=== PATIENT | male | born 1935 | race Caucasian/White ===

== ENCOUNTER → 2018-10-24 16:11 | Outpatient (CLI) | payer MEDICARE, SELFPAY ==
[2018-10-24 17:00] LABS: Add Manual Diff / Slide Review NO; Basophils Absolute Auto 0 /uL (0-100); Basophils Percent Auto 0.4 % (0-2); Eosinophils Absolute Auto 0 /uL (0-450); Eosinophils Percent Auto 0.7 % (2-4); Hematocrit 46.7 % (41-53); Hemoglobin 15.8 g/dL (13.5-17.5); Lymphocytes Absolute Auto 1800 /uL (1100-4500); Lymphocytes Percent Auto 27.3 % (25-40); Mean Corpuscular HGB Conc 33.8 % (30-36); Mean Corpuscular Hemoglobin 30.2 PG (26-34); Mean Corpuscular Volume 89.5 fL (80-100); Monocytes Absolute Auto 500 /uL (0-900); Monocytes Percent Auto 7.9 % (3-14); Neutrophils Absolute Auto 4100 /uL (1500-7000); Neutrophils Percent Auto 63.7 % (50-75); Platelet Count 162 X10^3/uL (150-400); Red Blood Cell Count 5.22 X10^6/uL (4.5-5.9); Red Cell Distribution Width 13.2 % (11.6-14.8); White Blood Cell Count 6.4 X10^3/uL (4.5-11.0)
[2018-10-24 17:20] LABS: BUN Creatinine Ratio 23.6 (6-22); Blood Urea Nitrogen 26 mg/dL (9-20); Calcium 9.7 mg/dL (8.4-10.2); Carbon Dioxide 29 mmol/L (22-32); Chloride 103 mmol/L (98-107); Cholesterol 189 mg/dL (140-199); Estimated Glomerular Filt Rate > 60.0 mL/min (>60); Glucose 89 mg/dL (80-110); HDL Cholesterol 45 mg/dL (40-60); HEMOLYSIS < 15 (0-50); LDL Cholesterol Calculated 126 mg/dL (<100); Potassium 4.2 mmol/L (3.4-5.1); Sodium 141 mmol/L (137-145); Triglycerides 91 mg/dL (35-150)
[2018-10-24 17:50] LABS: Thyroid Stimulating Hormone 2.72 uIU/mL (0.47-4.68)
== END ==
PROVIDERS: PCP Family Medicine; Visit Provider Internal Medicine Cardiovascular Disease
DX: R00.0 Tachycardia, unspecified (principal); I10 Essential (primary) hypertension
CPT/HCPCS: 36415; 80048; 80061; 84443; 85025

== ENCOUNTER → 2019-01-16 10:00 | Outpatient (CLI) | payer MEDICARE, SELFPAY ==
--- NOTE | 2019-01-16 14:58 | PM.TREADMILL ---
Cardiac Stress Test Report Referral & Results Date Patient Seen: 01/16/19 Requesting provider: Valerie Charles Indication: Preop Rest ECG: Unremarkable except for frequent PACs Procedure Note: After both written and verbal informed consent the patient had an IV started by the diagnostic imaging RN and then was hooked up to the treadmill monitoring system. The patient was placed on the treadmill at 1 mile an hour with no elevation and was then injected with the Nelsy scan material. The Cardiolite was then immediately administered. The patient spent an additional 2-3 minutes on the treadmill before being returned to the [facility] in the supine position. The patient had a normal response to all infused materials. Impression: Please see perfusion imaging report for details regarding possible ischemia Please note: Actual ECG tracings can be found in the PACS system.
--- NOTE | 2019-01-16 18:36 | DI.NM.S_ITS ---
DATE OF SERVICE: 01/16/2019 PROCEDURE: Pharmacological perfusion study. INDICATIONS: Nonsustained ventricular tachycardia, shortness of breath, hypertension, hyperlipidemia. RADIOPHARMACEUTICAL: 25.0038 mCi technetium-99m Myoview IV was injected at stress and 14.0 mCi technetium-99m Myoview IV was injected at rest. CARDIAC STRESS: Patient underwent IV Lexiscan perfusion study under the supervision of an attending staff. The patient what remained hemodynamically stable. No significant symptoms are reported. Baseline rhythm was sinus with some nonspecific ST-T changes. During stress, there was no convincing ischemic changes. Patient has intermittent PACs. No ventricular tachycardia seen. RAW DATA: There was increased subdiaphragmatic activity. GATED STUDY: Stress LV ejection fraction 82%, and resting stress LV ejection fraction 73%. No obvious wall motion abnormalities. No transient ischemic dilatation. TID ratio is 1.11, which is within normal limits. Resting LV end- diastolic volume is 93 mL. Lung/heart ratio is 0.25, which is within normal limits. MYOCARDIAL PERFUSION SCAN: Stress supine, resting supine, revealed mild-to- moderate sized, mildly decreased perfusion of inferior wall and inferior apex which got significantly improved during prone images suggestive of diaphragmatic tissue attenuation artifact. No convincing ischemia or infarction pattern seen. CONCLUSION: I will call this study likely a normal myocardial perfusion study with evidence of diaphragmatic tissue attenuation artifact which got resolved during prone images suggestive of diaphragmatic tissue attenuation artifact. Normal LV function. Overall, this is a low-risk myocardial perfusion scan. MICHELLE BENITEZ - [employer]/truong/ab doc#: [id number]/job#: [id number] dd: 01/16/2019 17:01:00 dt: 01/16/2019 18:26:00 DICTATING MD/COPIES TO: Loree Esparza MD COPIES MNE: ANNAMARIA
== END ==
PROVIDERS: PCP Family Medicine; Visit Provider Internal Medicine Cardiovascular Disease
DX: I47.2 Ventricular tachycardia (principal); R06.02 Shortness of breath; I10 Essential (primary) hypertension; E78.5 Hyperlipidemia, unspecified
CPT/HCPCS: 78452; 93016; 93017; 93018; A9502; J2785

== ENCOUNTER → 2021-08-13 14:28 | Outpatient (CLI) | payer MEDICARE, SELFPAY ==
--- NOTE | 2021-08-13 14:29 | DI.ECHO.S_ITS ---
[facility] +---------+ : : [address] : : : [place], [place] : : : : [id number] : : : : Phone: [phone] Echocardiogram Report + + :Name: MICHELLE BENITEZ Study Date: 08/13/2021 Height: 72 in : :[facility] ReadingLocation: Weight: 206 lb : : Gender: Male BSA: 2.2 m2 : :: 1935 Age: 85 yrs BP: 157/100 mmHg: :Reason For Study: Specified disorders of arteries and : :arteriols : : Performed By: Janusz Figueroa : :Referring: AZUL CHARLES : + + Interpretation Summary 1) Mildly increased left ventricular thickness (concentric) with normal size and normal systolic function (EF 55-60%). 2) Upper normal right ventricular size with normal function. 3) There is mild aortic regurgitation. 4) The ascending aorta is mildly enlarged at 4.4cm. 5) Hypertension present during the study (BP 157/100mmHg). 6) No prior Echo available for comparison. Procedure: A two-dimensional transthoracic echocardiogram with color flow and Doppler was performed. The study quality was technically adequate. Comparison is made with the echocardiogram of 11/14/2018. The patient was in normal sinus rhythm during the exam. The patient had occasional PVCs during the exam. Left Ventricle: The left ventricle is normal in size. There is borderline proximal septal thickening noted. There is mild concentric left ventricular hypertrophy. The ejection fraction is estimated to be 55-60%. There is a borderline dyssynchronous contraction pattern, consistent with a conduction abnormality. Diastolic function could not be accurately assessed due to contradictory data. Right Ventricle: The right ventricle is at the upper limits of normal in size. The right ventricular systolic function is normal. Atria: The left atrial size is normal. The right atrium is moderately dilated. There is no Doppler evidence for an interatrial shunt. Mitral Valve: There is mild mitral annular calcification. There is trace mitral regurgitation. Aortic Valve: The aortic valve is trileaflet. The aortic valve opens well. There is no aortic valve stenosis. There is mild aortic regurgitation. Tricuspid Valve: The tricuspid valve is normal. There is a trace or physiologic amount of tricuspid regurgitation. The right ventricular systolic pressure is estimated to be at least 22 mmHg based on an estimated right atrial pressure of 3 mm Hg. Pulmonic Valve: The pulmonic valve leaflets are thin and pliable; valve motion is normal. There is a trace or physiologic amount of pulmonic regurgitation. Great Vessels: The aortic root is borderline dilated. The ascending aorta is mildly enlarged. The aortic arch is normal in size. The IVC is of normal diameter and collapses greater than 50% with a sniff. This suggests a low right atrial pressure of 3 mm Hg. Pericardium/ Pleura There is no pericardial effusion. There is an anterior echo-free space consistent with a fat pad. There is no pleural effusion. MMode/2D Measurements & Calculations LVIDd: 4.1 cm LVOT diam: 2.2 cm LVIDs: 2.4 cm Ao root diam: 4.0 cm FS: 42.6 % asc Aorta Diam: 4.4 cm IVSd: 1.5 cm Ao Arch Diam (Prox Trans): 2.9 cm LVPWd: 1.2 cm LV wilcox. diameter/BSA (cm/m^2): 1.9 LV sys. diameter/BSA (cm/m^2): 1.1 LA A2 area: 19.0 cm2 RA long axis: 6.2 cm LA A4 area: 15.2 cm2 RA area: 23.6 cm2 LA length (vol): 6.1 cm RA vol: 76.0 ml LA vol: 40.1 ml RA : 35.3 ml/m2 LA vol index: 18.6 ml/m2 TAPSE: 2.4 cm Doppler Measurements & Calculations Ao V2 max: 126.3 cm/sec LVOT Max Perez: 114.3 cm/sec Ao V2 mean: 93.0 cm/sec LV V1 max P.2 mmHg Ao max P.4 mmHg LV V1 VTI: 23.8 cm Ao mean P.7 mmHg PATO(I,D): 3.2 cm2 Ao V2 VTI: 28.9 cm PATO(V,D): 3.5 cm2 sev ratio: 0.82 PATO indexed to BSA (cm^2/m^2): 1.5 MV E max perez: 98.6 cm/sec TR max perez: 219.6 cm/sec MV A max perez: 101.4 cm/sec TR max P.3 mmHg MV E/A: 0.97 PA V2 max: 69.9 cm/sec Med Peak E' Perez: 5.9 cm/sec PA V2 mean: 54.2 cm/sec E/E' med: 16.7 PA mean P.2 mmHg Lat Peak E' Perez: 6.3 cm/sec PA pr(Accel): 28.9 mmHg E/E' lat: 15.5 E/e' average: 16.1 MV dec time: 0.19 sec SV(LVOT): 92.5 ml Reading Physician:09:43 AM
== END ==
PROVIDERS: PCP Family Medicine; Referring Provider Internal Medicine Cardiovascular Disease; Visit Provider Internal Medicine Cardiovascular Disease
DX: I35.1 Nonrheumatic aortic (valve) insufficiency (principal); I77.89 Other specified disorders of arteries and arterioles
CPT/HCPCS: 93306

== ENCOUNTER 2022-04-23 19:16 | Inpatient (IN) | payer MEDICARE, SELFPAY ==
[2022-04-23] VITALS (13 sets, daily range): BP systolic 141–219; BP diastolic 66–102; PULSE 67–82; RESP 24; TEMP 36.8; O2SAT 85–98; BMI 27.6
[2022-04-23 19:54] LABS: Add Manual Diff / Slide Review NO; Basophils Absolute Auto 0 /uL (0-100); Basophils Percent Auto 0.2 % (0-2); Eosinophils Absolute Auto 0 /uL (0-450); Eosinophils Percent Auto 0.2 % (2-4); Hematocrit 43.3 % (41-53); Hemoglobin 15.1 g/dL (13.5-17.5); Lymphocytes Absolute Auto 1100 /uL (1100-4500); Lymphocytes Percent Auto 12.6 % (25-40); Mean Corpuscular HGB Conc 34.8 % (30-36); Mean Corpuscular Volume 89.1 fL (80-100); Monocytes Absolute Auto 500 /uL (0-900); Monocytes Percent Auto 5.4 % (3-14); Neutrophils Absolute Auto 7300 /uL (1500-7000); Neutrophils Percent Auto 81.6 % (50-75); Platelet Count 157 X10^3/uL (150-400); Red Blood Cell Count 4.86 X10^6/uL (4.5-5.9); Red Cell Distribution Width 13.7 % (11.6-14.8)
[2022-04-23 20:01] LABS: Alanine Aminotransferase 26 IU/L (<50); Albumin 4.6 g/dL (3.5-5.0); Albumin Globulin Ratio 1.6 (1.0-2.8); Alkaline Phosphatase 81 U/L (38-126); Aspartate Aminotransferase 27 IU/L (17-59); BUN Creatinine Ratio 30.3 (6-22); Bilirubin Total 1.2 mg/dL (0.2-1.3); Blood Urea Nitrogen 27 mg/dL (9-20); Calcium 9.5 mg/dL (8.4-10.2); Carbon Dioxide 26 mmol/L (22-32); Chloride 103 mmol/L (98-107); Estimated Glomerular Filt Rate > 60 mL/min (>60); Globulin 2.9 g/dL (1.7-4.1); Glucose 145 mg/dL (80-110); HEMOLYSIS 21 (0-50); Lipase 56 U/L (23-300); Potassium 4.2 mmol/L (3.4-5.1); Sodium 138 mmol/L (137-145); Total Protein 7.5 g/dL (6.3-8.2)
--- NOTE | 2022-04-23 21:09 | DI.CT.S_ITS ---
PROCEDURE: CT ABDOMEN PELVIS W CON INDICATIONS: Fever and abdominal pain TECHNIQUE: After the administration of oral and IV contrast, axial sections were acquired from the lung bases to the pubic symphysis. Coronal and sagittal reformats were performed. For radiation dose reduction, the following was used: automated exposure control, adjustment of mA and/or kV according to patient size. COMPARISON: None. FINDINGS: Image quality: Excellent. Lung bases: Mild fibrotic change can be seen posteriorly and medially on the right. There is a moderate hiatal hernia. With associated distal esophageal wall thickening. Heart: No significant findings. Moderate coronary artery calcification is seen. ABDOMEN: Liver: Unremarkable. Gallbladder: Layering gallstones are seen within the gallbladder. Biliary ducts: Unremarkable. Pancreas: Unremarkable. Spleen: Unremarkable. Adrenal Glands: Unremarkable. Kidneys and Ureters: Simple appearing bilateral renal cysts are seen. The kidneys demonstrate normal size and enhance symmetrically. There is no hydronephrosis. Stomach and Bowel: Abnormally dilated loops of small bowel can be seen proximally, which measure up to 3.3 cm. The distal small bowel loops are decompressed. A transition point can be seen within the right lower quadrant, where there is thickening and narrowing of the small bowel, as on series 3, image 25 and on series 2, image 46. Colonic diverticulosis is seen, without findings of active diverticulitis. The colon is otherwise unremarkable. No significant gastric abnormality is identified. Peritoneum: No abnormal intraperitoneal fluid. No free air. Ventral Wall: No hernia. Abdominal Nodes: No retroperitoneal or mesenteric adenopathy by size criteria. Vessels: Aorta and inferior vena cava are normal in size. Atherosclerotic calcification is noted. PELVIS: Pelvic Organs: The prostate is enlarged, measuring 6.4 cm transversely. Bladder: Unremarkable. Pelvic Nodes: No enlarged lymph nodes. Miscellaneous: There is a fat containing left inguinal hernia. Bones: Degenerative changes are seen throughout, which are overall worst at the L5-S1 level. S-shaped scoliotic curvature is seen. IMPRESSION: Small-bowel obstruction, with a transition point seen within the right lower quadrant. There is a moderate hiatal hernia seen, with distal esophageal wall thickening. Please correlate with chronic reflux disease. If clinically appropriate, please consider an upper endoscopy for further evaluation. Colonic diverticulosis is seen, without findings of active diverticulitis. Incidental note is made of: Moderate coronary artery calcifications Layering gallstones Simple bilateral renal cysts. Focal L5-S1 degenerative change Enlarged prostate Fat containing left inguinal hernia Dictated by: Basil Katz M.D. on 04/23/2022 at 21:03 Approved by: Basil Katz M.D. on 04/23/2022 at 21:10
--- NOTE | 2022-04-23 21:09 | ED_ITS ---
HPI - Abdominal Pain General Chief Complaint: Abdominal Pain Stated Complaint: abdominal pain, nv Time Seen by Provider: 04/23/22 21:02 Source: patient Mode of arrival: EMS History of Present Illness HPI narrative: This 86-year-old gentleman comes to the ER today with right upper quadrant abdominal pain. He says he has had some vague discomfort in the right upper quadrant for some weeks now but since 11:00 a.m. this morning it has been quite severe causing multiple episodes of vomiting and shaking and chills. The pain radiates across the upper abdomen. He has no constipation or diarrhea. No flank pain. No chest pain or shortness of breath. No fever. No symptoms similar to this previously. No prior abdominal surgeries other than hernia surgery many years ago. He does have hypertension. Related Data Allergies Allergy/AdvReac Type Severity Reaction Status Date / Time No Known Drug Allergies Allergy Verified 04/23/22 19:28 Review of Systems Review of Systems Narrative: Complete review of systems is negative other than as noted above. Exam Narrative Exam Narrative: GENERAL: Moderately ill-appearing elderly gentleman holding his right upper quadrant with 1 hand. HEAD: Atraumatic. Normocephalic. EYES: Sclera are clear without icterus. Extraocular movements are full. ENT: No rhinorrhea. Oropharynx is moist. Mouth exam is benign. NECK: Supple. Full range of motion. CARDIOVASCULAR: Normal rate and rhythm without murmur gallop or rub. RESPIRATORY: Clear to auscultation. Breath sounds equal bilaterally. No wheezes, rales, or rhonchi. GASTROINTESTINAL: Abdomen is distended and acutely tender in the right upper quadrant and mid epigastrium. The abdomen is soft without guarding or mass or rebound tenderness. EXTREMITIES: No edema, full range of motion. No obvious trauma. BACK: Normal inspection, no CVA tenderness. NEURO: Nonfocal examination, normal speech, normal gait. SKIN: No rash or erythema of visible areas PSYCH: Normally oriented. Normal range of affect. Appropriate behavior Initial Vital Signs Initial Vital Signs: Vital Signs Temperature 98.2 F 04/23/22 19:22 Pulse Rate 73 04/23/22 19:22 Respiratory Rate 24 04/23/22 19:22 Blood Pressure 219/99 H 04/23/22 19:22 Pulse Oximetry 98 04/23/22 19:22 Oxygen Delivery Method 04/23/22 19:22 Course Orders Ordered: ED Orders 04/23/22 19:25 Complete Blood Count AUTO DIFF Stat Comprehensive Metabolic Panel Stat Lactate (Lactic Acid) Stat Lipase Stat Troponin I Stat 04/23/22 19:35 EKG-12 Lead Stat 04/23/22 21:09 CT abdomen pelvis w con Stat Ondansetron HCl (Ondansetron 4 Mg/2 Ml Inj) 4 mg IV Q2HR PRN PRN Reason: Nausea And Vomiting Last Admin: 04/23/22 21:20 Dose: 4 mg Documented By: MARY ANNE Discontinued Medications Acetaminophen (Acetaminophen 325 Mg Tablet) 975 mg PO NOW ONE Stop: 04/23/22 21:08 Last Admin: 04/23/22 21:56 Dose: Not Given Documented By: MARY ANNE Acetaminophen (Acetaminophen 325 Mg Tablet) 975 mg PO NOW ONE Stop: 04/23/22 21:57 Last Admin: 04/23/22 22:00 Dose: 975 mg Documented By: MARY ANNE Fentanyl (Fentanyl 100 Mcg/2 Ml Inj) 90 mcg 1 mcg/kg (90 mcg) IV NOW ONE Stop: 04/23/22 21:08 Last Admin: 04/23/22 21:17 Dose: 90 mcg Documented By: MARY ANNE Sodium Chloride (Normal Saline 0.9%) 1,000 mls @ 1,000 mls/hr IV BOLUS ONE Stop: 04/23/22 22:06 Last Infusion: 04/23/22 22:58 Dose: 0 mls/hr Documented By: MARY ANNE Admin: 04/23/22 21:20 Dose: 1,000 mls/hr Documented By: MARY ANNE Ketorolac Tromethamine (Ketorolac 30 Mg/Ml Vial) 15 mg IV NOW ONE Stop: 04/23/22 21:08 Last Admin: 04/23/22 21:19 Dose: 15 mg Documented By: MARY ANNE Reevaluation(s) Reevaluation #1: Current time is 2355. He feels somewhat better Consultations Consultation #1: I discussed the case at 11:56 p.m. with Kristin Lee. She agrees to admit the patient. Vital Signs Vital signs: Vital Signs - 8 hr 04/23/22 19:22 Temperature 98.2 F Pulse Rate 73 Respiratory Rate 24 Blood Pressure 219/99 H Pulse Oximetry 98 Oxygen Delivery Method Room Air MDM - Abdominal Pain Lab Data Result diagrams: 04/23/22 19:25 04/23/22 19:25 Labs: Lab Results 04/23/22 04/23/22 04/23/22 Range/Units 19:25 19:25 19:25 WBC 9.0 (4.5-11.0) X10^3/uL RBC 4.86 (4.5-5.9) X10^6/uL Hgb 15.1 (13.5-17.5) g/dL Hct 43.3 (41-53) % MCV 89.1 (80-100) fL MCH 31.0 (26-34) PG MCHC 34.8 (30-36) % RDW 13.7 (11.6-14.8) % Plt Count 157 (150-400) X10^3/uL Neut % (Auto) 81.6 H (50-75) % Lymph % (Auto) 12.6 L (25-40) % [place] % (Auto) 5.4 (3-14) % Eos % (Auto) 0.2 L (2-4) % Baso % (Auto) 0.2 (0-2) % Neut # (Auto) 7300 H (2106-7035) /uL Lymph # (Auto) 1100 (1479-0824) /uL [place] # (Auto) 500 (0-900) /uL Eos # (Auto) 0 (0-450) /uL Baso # (Auto) 0 (0-100) /uL Sodium 138 (137-145) mmol/L Potassium 4.2 (3.4-5.1) mmol/L Chloride 103 (98-107) mmol/L Carbon Dioxide 26 (22-32) mmol/L BUN 27 H (9-20) mg/dL Creatinine 0.89 (0.66-1.25) mg/dL Estimated GFR > 60 (>60) mL/min BUN/Creatinine Ratio 30.3 H (6-22) Glucose 145 H (80-110) mg/dL Lactate 1.8 (0.7-2.1) mmol/L Calcium 9.5 (8.4-10.2) mg/dL Total Bilirubin 1.2 (0.2-1.3) mg/dL AST 27 (17-59) IU/L ALT 26 (<50) IU/L Alkaline Phosphatase 81 (38-126) U/L Troponin I (0.01-0.034) ng/mL Total Protein 7.5 (6.3-8.2) g/dL Albumin 4.6 (3.5-5.0) g/dL Globulin 2.9 (1.7-4.1) g/dL Albumin/Globulin Ratio 1.6 (1.0-2.8) Lipase 56 (23-300) U/L 04/23/22 Range/Units 19:25 WBC (4.5-11.0) X10^3/uL RBC (4.5-5.9) X10^6/uL Hgb (13.5-17.5) g/dL Hct (41-53) % MCV (80-100) fL MCH (26-34) PG MCHC (30-36) % RDW (11.6-14.8) % Plt Count (150-400) X10^3/uL Neut % (Auto) (50-75) % Lymph % (Auto) (25-40) % [place] % (Auto) (3-14) % Eos % (Auto) (2-4) % Baso % (Auto) (0-2) % Neut # (Auto) (5971-7238) /uL Lymph # (Auto) (5691-9581) /uL [place] # (Auto) (0-900) /uL Eos # (Auto) (0-450) /uL Baso # (Auto) (0-100) /uL Sodium (137-145) mmol/L Potassium (3.4-5.1) mmol/L Chloride (98-107) mmol/L Carbon Dioxide (22-32) mmol/L BUN (9-20) mg/dL Creatinine (0.66-1.25) mg/dL Estimated GFR (>60) mL/min BUN/Creatinine Ratio (6-22) Glucose (80-110) mg/dL Lactate (0.7-2.1) mmol/L Calcium (8.4-10.2) mg/dL Total Bilirubin (0.2-1.3) mg/dL AST (17-59) IU/L ALT (<50) IU/L Alkaline Phosphatase (38-126) U/L Troponin I < 0.012 (0.01-0.034) ng/mL Total Protein (6.3-8.2) g/dL Albumin (3.5-5.0) g/dL Globulin (1.7-4.1) g/dL Albumin/Globulin Ratio (1.0-2.8) Lipase (23-300) U/L Imaging Data Abdominal x-ray: Radiologist's Impression: IMPRESSION:? ? Small-bowel obstruction, with a transition point seen within the right lower quadrant. ? There is a moderate hiatal hernia seen, with distal esophageal wall thickening.? Please correlate with chronic reflux disease.? If clinically appropriate, please consider an upper endoscopy for further evaluation. ? Colonic diverticulosis is seen, without findings of active diverticulitis. ? ? Incidental note is made of: Moderate coronary artery calcifications Layering gallstones Simple bilateral renal cysts. Focal L5-S1 degenerative change Enlarged prostate Fat containing left inguinal hernia ? Dictated by: Basil Katz M.D. on 04/23/2022 at 21:03 ? ? Approved by: Basil Katz M.D. on 04/23/2022 at 21:10 ? Discharge Plan Departure Patient Disposition: Admitted As Inpatient Clinical Impression: Complete small bowel obstruction Referrals: Truman Quinn DO [Primary Care Provider] -
[2022-04-23] MEDS: fentaNYL 100 MCG/2 ML INJ 90 MCG IV (21:17)
[2022-04-23] MEDS: KETOROLAC 30 MG/ML VIAL 15 MG IV (21:19)
[2022-04-23] MEDS: SODIUM CHLORIDE 0.9% 1,000 ML 1000 ML IV (21:20)
[2022-04-23] MEDS: ONDANSETRON 4 MG/2 ML INJ IV (21:20)
[2022-04-23 21:23] LABS: Lactate (Lactic Acid) 1.8 mmol/L (0.7-2.1)
[2022-04-23 21:35] LABS: Troponin I < 0.012 ng/mL (0.01-0.034)
[2022-04-23] MEDS: ACETAMINOPHEN 325 MG TABLET 975 MG PO (22:00)
[2022-04-24] VITALS (16 sets, daily range): BP systolic 137–157; BP diastolic 74–92; PULSE 63–106; RESP 18; TEMP 36.2–36.4; O2SAT 94–98; BMI 27.3
--- NOTE | 2022-04-24 | DI.RAD.S_ITS ---
PROCEDURE: XR GASTROGRAFIN CHALLENGE COMPARISON: [facility], CT, CT ABDOMEN PELVIS W CON, 04/23/2022, 21:17. INDICATIONS: SBO FINDINGS: Proximal dilated small bowel is distended with Gastrografin mass up to 3.7 cm in diameter. No distal small bowel contrast observed. No free air. IMPRESSION: Persistent small bowel obstruction Approved by: Jimbo Callahan M.D. on 04/24/2022 at 17:35
[2022-04-24 00:38] LABS: Bacteria Urine None Seen; Mucus Urine 1+ (Negative); RBC Urine 1-5/HPF (0-5/HPF); Squamous Epithelial Cell Urine 0-1 /HPF (0-5/HPF); WBC Urine 1-5/HPF (0-5/HPF)
[2022-04-24 00:39] LABS: Culture Indicated Urine Cult Not Indicated
[2022-04-24] MEDS: DEXTROSE 5%-LACTATED RINGERS 1,000 ML 100 ML IV ×2 (00:52→08:51)
[2022-04-24 00:59] LABS: COVID19 -Nasal RAPID Negative (Negative)
--- NOTE | 2022-04-24 01:54 | PC.ADMIT ---
[facility] Admission Note: The patient,Hank Rocha,86 y/o, was given written information regarding hospital policies, unit procedures and contact persons. Patient's smoking status: Never smoker. Vital Signs - 8 hr 04/23/22 19:22 04/23/22 19:31 04/23/22 20:00 Temperature 98.2 F Pulse Rate 73 72 67 Respiratory Rate 24 Blood Pressure 219/99 H Pulse Oximetry 98 95 98 Oxygen Delivery Method Room Air Oxygen Flow Rate 04/23/22 20:01 04/23/22 20:01 04/23/22 20:30 Temperature Pulse Rate 67 67 Respiratory Rate Blood Pressure 215/102 H Pulse Oximetry 97 98 Oxygen Delivery Method Oxygen Flow Rate 04/23/22 21:00 04/23/22 21:01 04/23/22 21:01 Temperature Pulse Rate 71 72 Respiratory Rate Blood Pressure 204/84 H Pulse Oximetry 96 98 Oxygen Delivery Method Oxygen Flow Rate 04/23/22 21:30 04/23/22 21:31 04/23/22 21:31 Temperature Pulse Rate 77 68 Respiratory Rate Blood Pressure 166/73 H Pulse Oximetry 85 L 90 L Oxygen Delivery Method Oxygen Flow Rate 04/23/22 22:00 04/23/22 22:00 04/23/22 22:30 Temperature Pulse Rate 82 Respiratory Rate Blood Pressure 143/66 H 144/78 H Pulse Oximetry 90 L Oxygen Delivery Method Oxygen Flow Rate 04/23/22 22:30 04/23/22 23:00 04/23/22 23:00 Temperature Pulse Rate 76 70 Respiratory Rate Blood Pressure 141/73 H Pulse Oximetry 92 93 Oxygen Delivery Method Oxygen Flow Rate 04/23/22 23:30 04/23/22 23:30 04/24/22 00:00 Temperature Pulse Rate 70 79 Respiratory Rate Blood Pressure 152/80 H Pulse Oximetry 95 96 Oxygen Delivery Method Oxygen Flow Rate 04/24/22 00:30 04/24/22 00:55 04/24/22 01:52 Temperature Pulse Rate 67 Respiratory Rate Blood Pressure Pulse Oximetry 96 97 Oxygen Delivery Method Room Air Room Air Oxygen Flow Rate 0 04/24/22 00:39 Temperature 97.1 F L Pulse Rate 79 Respiratory Rate 18 Blood Pressure 157/92 H Pulse Oximetry 97 Oxygen Delivery Method Oxygen Flow Rate 0 Patient admitted to room 209 from ER per stretcher but walked from stretcher to bed. Is alert and oriented. Breath sounds CTA with RA sat of 97%. HRR w/telemetry reading of SR w/1st degree AVB. 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 BP elevated at 157/92. Denies current nausea after having received Zofran in ER. Complains of 5/10 abdominal cramping but states much improved after receiving Fentanyl in ER. BT present and abdomen is soft but tender across lower abdomen right > left. Denies dysuria, frequency or urgency with urination. Is independent with mobility but advised to call for staff assist due to IV pole and SCD's. Rashy skin noted on back but denies itching; reports recent skin biopsy. Bilateral calf SCD's applied. Patient oriented to call light and bed controls. CBG = 122. Will be NPO at this time; verbalizes understanding.
[2022-04-24] MEDS: ACETAMINOPHEN 325 MG TABLET 650 MG PO ×3 (05:43→18:28)
[2022-04-24] MEDS: METOPROLOL ER 50 MG TABLET PO ×2 (08:47→20:21)
--- NOTE | 2022-04-24 09:45 | P.HP_ITS ---
History of Present Illness History of Present Illness Date Patient Seen: 04/24/22 Time Patient Seen: 09:45 Chief complaint: abdominal pain, nv Narrative: Right upper quadrant pain for weeks with new onset nausea and vomiting last day or so. No fever, no cough, no radiation of pain. Pain is generalized in the abdominal since onset of emesis. No flatus or BM in 24 hrs. History of appendectomy Patient History Medical History Coccidioidomycosis Herniated disc Inguinal hernia Kidney calculi Lymphoma Melanoma Prostate cancer Surgical History Hx of appendectomy Hx of lithotripsy Hx of parathyroidectomy Total knee replacement status Family & Social History Social History: household members spouse Prior Living Arrangements House Safety & Behavioral: Feels Safe in Current Yes Environment Been Physically Hurt or No Threatened By a Person Tobacco & Substance use: Smoking Status Never smoker alcohol intake current alcohol intake frequency holiday/special occasion Substance Use Type does not use Meds Home Medications and Allergies Home Medications Medication Instructions Recorded Confirmed Type atorvastatin 10 mg tablet 10 mg PO BEDTIME 04/24/22 04/24/22 History finasteride 5 mg tablet 5 mg PO BEDTIME 04/24/22 04/24/22 History losartan 50 mg tablet 50 mg PO BEDTIME 04/24/22 04/24/22 History metoprolol succinate 50 mg 50 mg PO BID 04/24/22 04/24/22 History tablet,extended release 24 hr tamsulosin 0.4 mg capsule 0.4 mg PO BEDTIME 04/24/22 04/24/22 History triamcinolone acetonide 0.1 % 1 applic topical BID PRN 04/24/22 04/24/22 History topical cream rash/itching Allergies Allergy/AdvReac Type Severity Reaction Status Date / Time No Known Drug Allergies Allergy Verified 04/23/22 19:28 Review of Systems Review of Systems ROS: Yes All systems reviewed with the patient and are negative except as otherwise documented Exam Vital Signs (past 8 hours): - 04/24/22 01:52 04/24/22 05:00 04/24/22 04:01 Temperature 97.3 F L Pulse Rate 84 Respiratory Rate 18 Blood Pressure 157/82 H Pulse Oximetry 98 98 Oxygen Delivery Method Room Air Oxygen Flow Rate 0 0 04/24/22 08:58 Temperature 97.2 F L Pulse Rate 68 Respiratory Rate 18 Blood Pressure 149/74 H Pulse Oximetry 96 Oxygen Delivery Method Oxygen Flow Rate 0 Oxygen Delivery Method Room Air Oxygen Flow Rate 0 Const General: cooperative and healthy appearing Nutritional Appearance: average body habitus Orientation: alert, awake and oriented x3 [facility] Head: normocephalic and atraumatic Eyes General: appearance normal, both eyes and all related structures Sclera: sclerae normal Neck Neck: trachea midline Chest Chest: normal inspection of the chest Resp Effort & Inspection: normal respiratory effort and able to speak in complete sentences Cardio Rate: regular rate Rhythm: regular rhythm GI Inspection: normal to inspection Palpation: soft and tender (mild generalized tender to palpation) Skin General: no rashes or lesions noted and atrophy Neuro General: patient alert, patient awake and patient oriented x3 Extrem General: normal to inspection Psych Appearance: grossly normal Attitude: cooperative Judgment: judgment good Objective Labs Result Diagrams: 04/23/22 19:25 04/23/22 19:25 Labs: Laboratory Results - last 24 hr 04/23/22 04/23/22 04/23/22 19:25 19:25 19:25 WBC 9.0 RBC 4.86 Hgb 15.1 Hct 43.3 MCV 89.1 MCH 31.0 MCHC 34.8 RDW 13.7 Plt Count 157 Neut % (Auto) 81.6 H Lymph % (Auto) 12.6 L Labette % (Auto) 5.4 Eos % (Auto) 0.2 L Baso % (Auto) 0.2 Neut # (Auto) 7300 H Lymph # (Auto) 1100 Labette # (Auto) 500 Eos # (Auto) 0 Baso # (Auto) 0 Sodium 138 Potassium 4.2 Chloride 103 Carbon Dioxide 26 BUN 27 H Creatinine 0.89 Estimated GFR > 60 BUN/Creatinine Ratio 30.3 H Glucose 145 H Lactate 1.8 Calcium 9.5 Total Bilirubin 1.2 AST 27 ALT 26 Alkaline Phosphatase 81 Troponin I Total Protein 7.5 Albumin 4.6 Globulin 2.9 Albumin/Globulin Ratio 1.6 Lipase 56 Urine RBC Urine WBC Ur Squamous Epith Cells Urine Bacteria Urine Mucus Ur Culture Indicated? SARS-CoV-2 (PCR) 04/23/22 04/24/22 04/24/22 19:25 00:29 00:34 WBC RBC Hgb Hct MCV MCH MCHC RDW Plt Count Neut % (Auto) Lymph % (Auto) Labette % (Auto) Eos % (Auto) Baso % (Auto) Neut # (Auto) Lymph # (Auto) Labette # (Auto) Eos # (Auto) Baso # (Auto) Sodium Potassium Chloride Carbon Dioxide BUN Creatinine Estimated GFR BUN/Creatinine Ratio Glucose Lactate Calcium Total Bilirubin AST ALT Alkaline Phosphatase Troponin I < 0.012 Total Protein Albumin Globulin Albumin/Globulin Ratio Lipase Urine RBC 1-5/hpf Urine WBC 1-5/hpf Ur Squamous Epith Cells 0-1 /hpf Urine Bacteria None seen Urine Mucus 1+ H Ur Culture Indicated? Cult not indicated SARS-CoV-2 (PCR) Negative Assessment & Plan Assessment & Plan narrative: SBO likely adhesive disease. No etiology for the RUQ discomfort for weeks but start on PPI for clinical reflux. Plan: IV hydration and gastrograffin challenge. COVID-19 COVID-19 status: Negative Time Spent With Patient Time with patient: 30 to 49 minutes with 50% spent counseling/coordinating care Critical Care time: I spent a total of [] minutes of critical care time on this patient's care today; this time is exclusive of procedural time.
[2022-04-24] MEDS: PANTOPRAZOLE 40 MG VIAL IV (11:39)
--- NOTE | 2022-04-24 11:56 | CM.DANOTE ---
DCP: Case received, EMR reviewed and met with patient. Spouse, Lucía was also at bedside, and was on the phone with their daughter. Introduced self and role. Was able to obtain information regarding patient's baseline activity level at home prior to hospitalization. DCP assessment completed with information currently available. Patient is an 86 year old male who admitted yesterday evening to the care of the hospitalist/surgical team. PCP: Dr. Quinn Payer: confirmed: Medicare/[employer]. Patient came to the hospital via ambulance secondary to having right upper quadrant pain. According to notes, since 11:00 am yesterday morning, pain had been quite severe causing multiple episodes of vomiting and shaking and chills. Patient was diagnosed with small-bowel obstruction. At this time, plan is IV hydration and PPI treatment. Met with patient in is room. He was laying in bed, alert and oriented. Spouse was speaking to daughter on the phone, who is a nurse. 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 Confirmed with patient that he and spouse reside in [place]. At his baseline, he is independent. P: DCP to continue to follow. At this time, plan is home when deemed medically stable. Lamar Craven RN/Tile Mechanic Helper Discharge Planning/Care Management Advanced directive, confirm from FAMILY Start: 04/24/22 01:08 Freq: Q24H Status: Active Protocol: Document 04/24/22 01:08 [facility] (Rec: 04/24/22 01:46 [facility] [id number]) Advance Directive, confirm on record Time 01:00 Person contacted Chiquita Rocha Copy received No CM Discharge Assessment Start: 04/24/22 11:51 Freq: Status: Active Protocol: Document 04/24/22 11:51 (Rec: 04/24/22 11:56 [id number]) Discharge Planning Assessment Assigned Cad Drafter Lamar Craven RN/Tile Mechanic Helper Advance Directives? Yes Advance Directives on File No History Provided By Patient,Medical Record Prior Living Arrangements House Household Members spouse Type of transporation used prior to Drives own vehicle admit Independent with ADL's Yes Is patient alert and oriented? Yes Caregiver for Another No Barriers to Discharge No Discharge Plan Home Transportation Arrangement Spouse Referrals Initiated None needed Whiteboard Updated in Patient Room with Yes name and ext. # of Cad Drafter Review Status In Process Next Review Type Continued Stay Review
--- NOTE | 2022-04-24 17:09 | PC.NURSE ---
[facility] called and patients heart rate is up to the 160s, ekg ordered. Patient up to the bathroom independently. Primary RN notified.
--- NOTE | 2022-04-24 17:42 | PC.NURSE ---
Cardiac/GI: Pt doing well after x-ray having several stools. Taking full liquid diet w/out problems. At 1710 ICU called reporting pt had a rate up to 160's. EKG completed. Pt is in A-fib with RVR. No c/p, vss, bp 149 systolic, RA sats are 96%. There is no history of a-fib listed. However the pt reports he has had a-fib with rapid rate for 3 years, DR. Harman is his mortar man. He had refused anticoagulation. Pt has no sensation of going in and out of a-fib, denies palpitations. Dr. Lee called, see new order. Lab called about alivia drawl. Heart rate currently 110's to 130's. Pt remains pain free and eating his food.
[2022-04-24 18:34] LABS: Alanine Aminotransferase 22 IU/L (<50); Albumin 4.4 g/dL (3.5-5.0); Albumin Globulin Ratio 1.6 (1.0-2.8); Alkaline Phosphatase 73 U/L (38-126); Aspartate Aminotransferase 30 IU/L (17-59); BUN Creatinine Ratio 30.1 (6-22); Bilirubin Total 1.2 mg/dL (0.2-1.3); Blood Urea Nitrogen 28 mg/dL (9-20); Carbon Dioxide 28 mmol/L (22-32); Chloride 103 mmol/L (98-107); Estimated Glomerular Filt Rate > 60 mL/min (>60); Globulin 2.8 g/dL (1.7-4.1); Glucose 153 mg/dL (80-110); HEMOLYSIS < 15 (0-50); Potassium 4.3 mmol/L (3.4-5.1); Sodium 140 mmol/L (137-145); Total Protein 7.2 g/dL (6.3-8.2)
[2022-04-24] MEDS: ATORVASTATIN 20 MG TABLET 10 MG PO (20:18)
[2022-04-24] MEDS: FINASTERIDE 5 MG TABLET PO (20:19)
[2022-04-24] MEDS: LOSARTAN 50 MG TABLET PO (20:19)
[2022-04-24] MEDS: TAMSULOSIN 0.4 MG CAPSULE PO (20:19)
[2022-04-24] MEDS: SODIUM CHLORIDE 0.9% FLUSH 10 ML IV (20:22)
[2022-04-24] MEDS: ENOXAPARIN 30 MG/0.3 ML SYRINGE SUBCUT (20:27)
--- NOTE | 2022-04-24 21:35 | PC.NURSE ---
Addendum entered by Kaylah Wilde R.N. 04/25/22 01:09: Per TAKE OUT WAITER, difficult to tell if patient is still in afib or a ST rhythm; EKG ordered by Trevin to verify. UC[facility] Zhong, came to see patient but patient became upset and refused intervention for heart. In talking with patient he states That's not what I came in for, you fixed what I came in for and I don't need to see another heart doctor. Discussed with him that HR was quite rapid and may require intervention and patient stated then discharge me, I'll only see Dr. Charles for my heart. Refused to have EKG done. Shortly after discussion noted that HR on telemetry is coming down and TAKE OUT WAITER reports patient is back in afib. Addendum entered by Kaylah Wilde R.N. 04/25/22 00:45: Noted that HR is sustaining in 140's. Discussed with TAKE OUT WAITER who reviewed telemetry and found he has been in 140's since around 0000. Patient has been sleeping. Awakened and denies and chest pain or palpitations. BP 147/83. Dr Lee contacted and informed and she requested hospitalist involvement. Call transferred to UC[facility] Zhong. Original Note: Patient is alert and oriented. Breath sounds diminished but CTA with RA sat of 94%. HR irregular w/telemetry reading of afib CVR although HR in low 100's at time of vitals assessment. BP continues to trend high at 142/82 but is now back on po antihypertensives. Denies nausea or abdominal pain. Continuing to have loose stools related to gastrograffin study on previous shift. Denies dysuria, frequency or urgency with urination. Is independent with mobility but reminded to call for staff assist if feeling dizzy, lightheaded or weak when getting out of bed. Refusing calf SCD's as he is having to get up to bathroom frequently/urgently; reminded to ankle wave. Denies pain. Fall risk score is moderate.
[2022-04-25] VITALS (7 sets, daily range): BP systolic 121–147; BP diastolic 67–83; PULSE 82–143; RESP 16–18; TEMP 36.1–36.5; O2SAT 95–96
--- NOTE | 2022-04-25 01:40 | P.EN_ITS ---
Event Note Date Patient Seen: 04/25/22 Time Patient Seen: 01:15 Event Note (Rapid Response, Code, or fall): I was requested to consult on the patient as the nurses monitoring his telemetry reported that he had AFib with RVR and then thought that the patient had SVT. I requested that the patient have an EKG done. 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 Charles) and did not want anything done up regarding his heart. I informed him that he was having his heart monitored in the stated he did not want to have his heart monitored. I also stated that he was at risk for having a stroke if his heart continued to be too fast or have an irregular heartbeat and he stated he did not want any of us to do anything about his heart. I discussed this with Dr. Lee who had initially asked me to see him and we will consider this a refusal of treatment.
[2022-04-25] MEDS: PANTOPRAZOLE DR 40 MG TABLET PO (06:02)
[2022-04-25] MEDS: METOPROLOL ER 50 MG TABLET PO (08:28)
[2022-04-25] MEDS: SODIUM CHLORIDE 0.9% FLUSH 10 ML IV (10:00)
--- NOTE | 2022-04-25 11:58 | P.DS_ITS ---
History of Present Illness History of Present Illness Date Patient Seen: 04/25/22 Time Patient Seen: 11:58 Chief complaint: abdominal pain, nv Narrative: Right upper quadrant pain for weeks with new onset nausea and vomiting last day or so. No fever, no cough, no radiation of pain. Pain is generalized in the abdominal since onset of emesis. No flatus or BM in 24 hrs. History of appendectomy Discharge Providers Provider Date of admission: 04/23/22 23:58 Discharge Date: 04/25/22 Primary care physician: Truman Quinn DO Consults: decline hospitalist consult for Rapid HR Discharge provider: Kristin Lee MD Summary Hospital Course Discharge Diagnosis: SBO resolved with gastrografin challenge Hospital Course: SBO hydration and cardiac monitoring Gastrografin challenge that resolved SBO Status at Discharge Cognitive/behavioral status at discharge: at baseline, oriented Functional status at discharge: independent ambulation Overall status at discharge: patient is progressing back to baseline Time Spent with Patient Time spent: Greater than 30 minutes Exam Vital Signs (past 8 hours): - 04/25/22 06:01 04/25/22 06:01 04/25/22 07:50 Temperature 97 F L 97.3 F L Pulse Rate 82 88 Respiratory Rate 16 18 Blood Pressure 121/74 Pulse Oximetry 96 96 95 Oxygen Delivery Method Room Air Oxygen Flow Rate 0 0 0 04/25/22 08:28 04/25/22 10:04 04/25/22 09:55 Temperature Pulse Rate 88 87 87 Respiratory Rate Blood Pressure 121/74 124/67 124/67 Pulse Oximetry Oxygen Delivery Method Oxygen Flow Rate Oxygen Delivery Method Room Air Oxygen Flow Rate 0 Narrative Exam Narrative: Abdomen is soft and nontender Pulmonary: good oxygenation no issue Cardiac: HR back to 80's Objective Labs Result Diagrams: 04/23/22 19:25 04/24/22 18:00 Labs: Laboratory Results - last 24 hr 04/24/22 18:00 Sodium 140 Potassium 4.3 Chloride 103 Carbon Dioxide 28 BUN 28 H Creatinine 0.93 Estimated GFR > 60 BUN/Creatinine Ratio 30.1 H Glucose 153 H Calcium 9.0 Total Bilirubin 1.2 AST 30 ALT 22 Alkaline Phosphatase 73 Total Protein 7.2 Albumin 4.4 Globulin 2.8 Albumin/Globulin Ratio 1.6 [facility] Medical History Coccidioidomycosis Herniated disc Inguinal hernia Kidney calculi Lymphoma Melanoma Prostate cancer Surgical History Hx of appendectomy Hx of lithotripsy Hx of parathyroidectomy Total knee replacement status Social History household members: spouse Smoking Status: Never smoker alcohol intake: current Discharge Assessment & Plan Assessment and Plan Assessment: Resolved SBO HR improved when returned to home meds Plan of Treatment: Discharge home w/o restrictions Discharge Plan Discharge Plan Patient Disposition: Home Discharge orders & Medications Prescriptions: Continued losartan 50 mg Tablet 50 mg PO BEDTIME atorvastatin 10 mg Tablet 10 mg PO BEDTIME metoprolol succinate 50 mg Tablet Extended Release 24 Hr 50 mg PO BID tamsulosin 0.4 mg Capsule 0.4 mg PO BEDTIME finasteride 5 mg Tablet 5 mg PO BEDTIME triamcinolone acetonide 0.1 % Cream 1 applic TOPICAL BID PRN (Reason: rash/itching) Follow up/Referrals: Truman Quinn DO [Primary Care Provider] - Diet/Activity/Treatments Diet: Diet as Tolerated Discharge Data Primary Care Provider: Truman Quinn
== END 2022-04-25 13:03 | disposition home or self-care (01) | DRG 390 ==
LOC: ED 23:55 → AC 23:59
PROVIDERS: Admitting Provider Surgery; Emergency Provider Family Medicine Addiction Medicine; PCP Family Medicine; Referring Provider Family Medicine Addiction Medicine; Visit Provider Surgery
DX: K56.609 Unspecified intestinal obstruction, unspecified as to partial versus complete obstruction (principal); I10 Essential (primary) hypertension; Z20.822 Contact with and (suspected) exposure to COVID-19; Z53.29 Procedure and treatment not carried out because of patient's decision for other reasons
CPT/HCPCS: 36415; 74018; 74177; 80053; 81003; 81015; 82962; 83605; 83690; 84484; 85025; 87086; 87635; 93005; 93010; 96374; 96375; 99221; 99238; 99284; C9803; C9113; J1650; J1885; J2405; J3010; J7121; Q9967

== ENCOUNTER → 2022-05-28 16:40 | Outpatient (CLI) | payer MEDICARE, SELFPAY ==
[2022-04-24 00:56] VITALS: BMI 27.3
--- NOTE | 2022-05-28 16:42 | DI.RAD.S_ITS ---
PROCEDURE: XR HIP W PEL IF DONE RT 2V INDICATIONS: lower back and right hip pain TECHNIQUE: Two views of the hip were acquired. COMPARISON: None. FINDINGS: Bones: Moderate qanmy-bwbyiff-jqti-left arthrosis. No acute fracture or dislocation. Lower lumbar spondylosis also partially seen. Soft tissues: No suspicious soft tissue calcifications or masses. IMPRESSION: Fipln-amglfgu-qfpe-left hip arthrosis. No acute radiographic abnormality. If there is high concern for internal derangement, consider MRI. Dictated by: Ascencion De Leon M.D. on 05/28/2022 at 20:37 Approved by: Ascencion De Leon M.D. on 05/28/2022 at 20:38
--- NOTE | 2022-05-28 16:42 | DI.RAD.S_ITS ---
PROCEDURE: XR LUMBAR SPINE 6V W BENDING INDICATIONS: lower back and right hip pain TECHNIQUE: 6 views of the lumbar spine. COMPARISON: None. FINDINGS: Bones: There are 5 [id number] lumbar type vertebral bodies. Trace anterolisthesis of L4 on L5. Mild to moderate overall spondylosis. Trace leftward spinal curvature. Soft tissues: Overlying bowel gas pattern is normal. No suspicious soft tissue calcifications. Flexion/extension without dynamic instability. Limited range of motion. Oblique views show no definite pars defects, although evaluation is obscured by bowel gas. At least moderate fecal loading. IMPRESSION: Ybiu-ug-ymtewmss spondylosis as above. Consider MRI for further evaluation if needed. Dictated by: Ascencion De Leon M.D. on 05/28/2022 at 20:38 Approved by: Ascencion De Leon M.D. on 05/28/2022 at 20:40
== END ==
PROVIDERS: PCP Family Medicine; Referring Provider Family Medicine; Visit Provider Family Medicine
DX: M47.816 Spondylosis without myelopathy or radiculopathy, lumbar region (principal); M25.551 Pain in right hip; M16.0 Bilateral primary osteoarthritis of hip; M54.50 Low back pain, unspecified
CPT/HCPCS: 72114; 73502

== ENCOUNTER → 2022-06-07 14:53 | Outpatient (CLI) | payer MEDICARE, SELFPAY ==
[2022-04-24 00:56] VITALS: BMI 27.3
--- NOTE | 2022-06-07 14:55 | DI.MRI.S_ITS ---
PROCEDURE: MR LUMBAR SPINE WO CON INDICATIONS: lower back and right hip pain TECHNIQUE: Noncontrast sagittal T1 spin echo and T2 fast echo, sagittal STIR, and T2 fast spin echo through the lumbar spine. In cases with scoliosis, additional coronal T2 fast spin echo may be performed. COMPARISON: None. FINDINGS: Image quality: Excellent. Alignment and Curvature: Mild grade 1 anterior spondylolisthesis present at L5-S1 Bone Marrow: Multilevel degenerative chronic endplate changes Spinal Cord: Conus medullaris terminates at the L1 level. Visualized cord demonstrates normal signal and size. Paraspinous Soft Tissues: No paravertebral masses. T12-L1: Normal appearance. L1-L2: Normal appearance. L2-L3: Normal appearance. L3-L4: Disc height is maintained. Circumferential disc bulge with hypertrophic facet joints results in mild central stenosis. No foraminal stenosis L4-L5: Disc space is maintained. Circumferential disc bulge with hypertrophic facet joints results in moderate central stenosis. Mild bilateral foraminal stenosis L5-S1: Disc space narrowing with hypertrophic facet joints and circumferential disc bulge. No central stenosis. Moderate right mild left foraminal stenosis IMPRESSION: Multilevel degenerative disc disease and arthropathy results in varying degrees of central and foraminal stenosis including moderate L4-5 central stenosis Approved by: Jimbo Callahan M.D. on 06/08/2022 at 11:35
== END ==
PROVIDERS: PCP Family Medicine; Referring Provider Family Medicine; Visit Provider Family Medicine
DX: M51.36 Other intervertebral disc degeneration, lumbar region (principal); M51.37 Other intervertebral disc degeneration, lumbosacral region; M47.816 Spondylosis without myelopathy or radiculopathy, lumbar region; M47.817 Spondylosis without myelopathy or radiculopathy, lumbosacral region; M48.061 Spinal stenosis, lumbar region without neurogenic claudication; M48.07 Spinal stenosis, lumbosacral region; M54.50 Low back pain, unspecified; M25.551 Pain in right hip
CPT/HCPCS: 72148

== ENCOUNTER → 2024-03-16 13:26 | Outpatient (CLI) | payer MEDICARE, SELFPAY ==
[2022-04-24 00:56] VITALS: BMI 27.3
--- NOTE | 2024-03-16 13:28 | DI.ECHO.S_ITS ---
[facility] : : [id number] : : [place] : : [id number] : : Phone: [phone] Echocardiogram Report + + :Name: MICHELLE BENITEZ Study Date: 03/16/2024 Height: 71 in : :[facility] ReadingLocation: Weight: 195 lb : : Gender: Male BSA: 2.1 m2 : :: 1935 Age: 88 yrs BP: 139/92 mmHg: :Reason For Study: ASCENDING AORTA ENLARGEMENT : :Ordering Physician: TABBY, : :AZUL Performed By: Jasmina Atkinson : :Referring: AZUL CHARLES : + + Interpretation Summary 1) Normal left ventricular thickness, size, wall motion, and systolic function (EF 60-65%). 2) Mildly enlarged right ventricle with low normal function. 3) There is mild aortic regurgitation. There is mild mitral regurgitation. 4) There is mild to moderate tricuspid regurgitation. 5) The ascending aorta is mildly enlarged at 4.4cm. 6) Compared to the Echo done 08/13/2021, mild-moderate tricuspid regurgitation is present on this study. Procedure: A two-dimensional transthoracic echocardiogram with color flow and Doppler was performed. The study quality was technically adequate. Comparison is made with the echocardiogram of 08/13/2021. The patient was in atrial fibrillation with heart rates between 73-94 bpm during the exam. Left Ventricle: Proximal septal thickening is noted. The left ventricle is normal in size and wall thickness. The ejection fraction is estimated to be 60-65%. Left ventricular systolic function appears normal without focal wall motion abnormalities. Diastolic parameters suggest a pseudonormalization pattern, consistent with probable elevated filling pressures. Right Ventricle: The right ventricle is mildly dilated. Right ventricular systolic function is at the lower limits of normal. Atria: The left atrial size is normal. The right atrium is borderline dilated. There is no Doppler evidence for an interatrial shunt. Mitral Valve: There is mild mitral annular calcification. The mitral valve leaflets appear mildly thickened, but open well. There is mild mitral regurgitation. There are multiple regurgitant jets present. Aortic Valve: The aortic valve is trileaflet. The aortic valve opens well. There is no aortic valve stenosis. There is mild aortic regurgitation. Tricuspid Valve: The tricuspid valve is normal in structure and function. There is mild to moderate tricuspid regurgitation. The right ventricular systolic pressure is estimated to be at least 34 mmHg based on an estimated right atrial pressure of 3 mm Hg. Pulmonic Valve: The pulmonic valve leaflets are thin and pliable; valve motion is normal. There is mild pulmonic regurgitation. Great Vessels: The aortic root is normal size. The ascending aorta is mildly enlarged. The IVC is of normal diameter and collapses greater than 50% with a sniff. This suggests a low right atrial pressure of 3 mm Hg. Pericardium/ Pleura There is no pericardial effusion. There is no pleural effusion. MMode/2D Measurements & Calculations LVIDd: 5.1 cm LVOT diam: 2.0 cm LVIDs: 3.3 cm Ao root diam: 4.0 cm FS: 36.0 % asc Aorta Diam: 4.4 cm IVSd: 0.95 cm Ao Arch Diam (Prox Trans): 2.9 cm LVPWd: 1.0 cm LV wilcox. diameter/BSA (cm/m^2): 2.4 LV sys. diameter/BSA (cm/m^2): 1.6 LA A2 area: 21.7 cm2 RA long axis: 6.0 cm LA A4 area: 24.0 cm2 RA area: 22.3 cm2 LA length (vol): 6.3 cm RA vol: 70.8 ml LA vol: 70.1 ml RA : 33.9 ml/m2 LA vol index: 33.6 ml/m2 IVC diam: 1.6 cm RVD1 (basal): 4.1 cm RVD2 (mid): 3.5 cm TAPSE: 1.9 cm Doppler Measurements & Calculations Ao V2 max: 148.4 cm/sec LVOT Max Perez: 117.3 cm/sec Ao V2 mean: 108.3 cm/sec LV V1 max P.5 mmHg Ao max P.8 mmHg LV V1 VTI: 24.4 cm Ao mean P.1 mmHg PATO(I,D): 3.1 cm2 Ao V2 VTI: 26.0 cm PATO(V,D): 2.6 cm2 sev ratio: 0.94 PATO indexed to BSA (cm^2/m^2): 1.5 AI P1/2t: 659.0 msec AI dec slope: 196.7 cm/sec2 MV E max perez: 136.7 cm/sec TR max perez: 278.6 cm/sec MV A max perez: 0.92 cm/sec TR max P.1 mmHg MV E/A: 149.3 PA V2 max: 90.8 cm/sec Med Peak E' Perez: 7.3 cm/sec PA V2 mean: 61.4 cm/sec E/E' med: 18.7 PA mean P.7 mmHg Lat Peak E' Perez: 8.0 cm/sec PA pr(Accel): 51.6 mmHg E/E' lat: 17.1 E/e' average: 17.9 MV dec time: 0.14 sec MVA(VTI): 2.5 cm2 MV V2 mean: 89.8 cm/sec SV(LVOT): 79.6 ml MV mean P.8 mmHg MV V2 VTI: 31.8 cm Reading Physician:05:47 PM
== END ==
PROVIDERS: PCP Family Medicine; Referring Provider Internal Medicine Cardiovascular Disease; Visit Provider Internal Medicine Cardiovascular Disease
DX: I08.3 Combined rheumatic disorders of mitral, aortic and tricuspid valves (principal); I77.89 Other specified disorders of arteries and arterioles
CPT/HCPCS: 93306

== ENCOUNTER → 2025-08-02 | Outpatient (CLI) | payer MEDICARE, SELFPAY ==
[2022-04-24 00:56] VITALS: BMI 27.3
--- NOTE | 2025-08-02 10:17 | DI.ECHO.S_ITS ---
[facility] : : [id number] : : [place] : : [id number] : : Phone: [phone] Echocardiogram Report + + :Name: MICHELLE BENITEZ Study Date: 08/02/2025 Height: 71 in : :[facility] ReadingLocation: Weight: 91 lb : : Gender: Male BSA: 1.5 m2 : :: 1935 Age: 89 yrs BP: 136/80 mmHg: :Reason For Study: Atrial flutter : :Ordering Physician: TABBY, : :AZUL Performed By: Hoa Pham : :Referring: AZUL CHARLES : + + Interpretation Summary 1) Normal left ventricular size, wall motion, and systolic function (EF 60- 65%). 2) Normal right ventricular size and function. 3) The left atrium is severely dilated. The right atrium is moderately dilated 4) No significant valvular abnormalities. 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 6) Compared to the echo done 03/16/2024, ascending aorta enlargement has increased from 4.4cm to 4.6cm on this study. Procedure: A two-dimensional transthoracic echocardiogram with color flow and Doppler was performed. The study quality was technically adequate. Comparison is made with the echocardiogram of 03-16-24. The heart rate ranged between 107-123 bpm during the study. Left Ventricle: The left ventricle is normal in size. Left ventricular wall thickness is at the upper limits of normal. The ejection fraction is estimated to be 60-65%. Left ventricular systolic function appears normal without focal wall motion abnormalities. Diastolic function could not be accurately assessed due to tachycardia. Right Ventricle: The right ventricle grossly appears normal in size with probable normal systolic function. Atria: The left atrium is severely dilated. The right atrium is moderately dilated. The interatrial septum grossly appears intact with no obvious evidence for an atrial septal defect. Mitral Valve: The mitral valve leaflets appear mildly thickened. The mitral valve leaflets are slightly calcified. There is trace mitral regurgitation. Aortic Valve: The aortic valve is trileaflet. The aortic valve opens well. There is no aortic valve stenosis. No aortic regurgitation is present. Tricuspid Valve: The tricuspid valve leaflets are thickened and/or calcified, but open well. There is mild tricuspid regurgitation. The right ventricular systolic pressure is estimated to be at least 37 mmHg based on an estimated right atrial pressure of 3 mm Hg. Pulmonic Valve: The pulmonic valve is not well seen, but is grossly normal. There is a trace or physiologic amount of pulmonic regurgitation. Great Vessels: The aortic root is mildly dilated. The ascending aorta is moderately enlarged. The aortic arch is normal in size. The IVC is of normal diameter and collapses greater than 50% with a sniff. This suggests a low right atrial pressure of 3 mm Hg. Pericardium/ Pleura There is no pericardial effusion. There is no pleural effusion. MMode/2D Measurements & Calculations LVIDd: 5.0 cm LVOT diam: 1.8 cm LVIDs: 2.4 cm Ao root diam: 4.2 cm FS: 52.3 % asc Aorta Diam: 4.6 cm EPSS: 0.62 cm Ao Arch Diam (Prox Trans): 2.6 cm IVSd: 0.96 cm LVPWd: 1.2 cm LV wilcox. diameter/BSA (cm/m^2): 3.3 LV sys. diameter/BSA (cm/m^2): 1.6 LA A2 area: 25.8 cm2 RA long axis: 5.8 cm LA A4 area: 26.1 cm2 RA area: 21.1 cm2 LA length (vol): 6.4 cm RA vol: 65.9 ml LA vol: 88.8 ml RA : 43.7 ml/m2 LA vol index: 58.9 ml/m2 IVC diam: 1.7 cm RVD1 (basal): 3.0 cm TAPSE: 2.0 cm Doppler Measurements & Calculations Ao V2 max: 149.4 cm/sec LVOT Max Perez: 109.2 cm/sec Ao V2 mean: 96.0 cm/sec LV V1 max P.8 mmHg Ao max P.9 mmHg LV V1 VTI: 18.5 cm Ao mean P.4 mmHg PATO(I,D): 2.1 cm2 Ao V2 VTI: 23.3 cm PATO(V,D): 2.0 cm2 sev ratio: 0.79 PATO indexed to BSA (cm^2/m^2): 1.4 Lat Peak E' Perez: 9.4 cm/sec TR max perez: 290.9 cm/sec MVA(VTI): 3.2 cm2 TR max P.8 mmHg PA V2 max: 82.7 cm/sec PA V2 mean: 56.3 cm/sec PA mean P.5 mmHg PA pr(Accel): 22.5 mmHg MV V2 mean: 80.1 cm/sec SV(LVOT): 49.3 ml MV mean P.2 mmHg MV V2 VTI: 15.5 cm Reading Physician:12:07 PM
== END ==
LOC: ECHO 10:15
PROVIDERS: PCP Family Medicine; Referring Provider Internal Medicine Cardiovascular Disease; Visit Provider Internal Medicine Cardiovascular Disease
DX: I07.1 Rheumatic tricuspid insufficiency (principal); I48.4 Atypical atrial flutter; I77.810 Thoracic aortic ectasia; I77.89 Other specified disorders of arteries and arterioles
CPT/HCPCS: 93306

== ENCOUNTER → 2025-08-14 18:43 | Outpatient (ROUT) | payer MEDICARE, SELFPAY ==
[2022-04-24 00:56] VITALS: BMI 27.3
== END ==
PROVIDERS: PCP Family Medicine; Visit Provider Registered Nurse
DX: L08.9 Local infection of the skin and subcutaneous tissue, unspecified (principal); Z79.899 Other long term (current) drug therapy
CPT/HCPCS: 87070; 87075; 87205